=== PATIENT | female | born 1945 | race Caucasian/White ===

== ENCOUNTER 2017-08-02 05:01 | Emergency (ER) | payer MEDICARE ==
[~2017-08-02] VITALS: Ht 167.6 cm; Wt 68.0 kg
[2017-08-02] MEDS ORDERED: MUCINEX (05:34)
--- NOTE | 2017-08-02 05:35 | NUR ---
Pt c/o cough x 4 days after flying from [place], was not sick there, and associated rib pain from coughing. Pt denies CP, SOB, dizziness, n/v, no other complaints, minor distress noted.
[2017-08-02] MEDS ORDERED: MORPHINE SULFATE 2 MG/1 ML DISP.SYRIN IV ONE (06:15)
[2017-08-02] MEDS ORDERED: IV NORMAL SALINE 1000 ML BAG IV ONE (06:15)
[2017-08-02] MEDS ORDERED: ALBUTEROL SULFATE 2.5 MG/3 ML NEBU NEB ONE (06:15)
[2017-08-02] MEDS ORDERED: ONDANSETRON 4 MG/2 ML VIAL IV ONE (06:15)
[2017-08-02] MEDS ORDERED: ONDANSETRON 4 MG/2 ML VIAL ONE (06:42)
[2017-08-02] MEDS ORDERED: MORPHINE SULFATE 4 MG/1 ML DISP.SYRIN ONE ×2 (06:42→06:47)
[2017-08-02 06:49] LABS: BASOPHILS % (AUTO) 0.4 % (0.0-2.0); EOSINOPHILS % (AUTO) 1.1 % (0.0-7.0); HEMATOCRIT 41.1 % (31.2-41.9); HEMOGLOBIN 13.9 g/dL (10.9-14.3); LYMPHOCYTES # (AUTO) 1.1 K/uL (20.0-40.0); LYMPHOCYTES % (AUTO) 35.3 % (20.5-51.5); MEAN CORPUSCULAR HEMOGLOBIN 28.5 uug (24.7-32.8); MEAN CORPUSCULAR HGB CONC 34 g/dL (32.3-35.6); MEAN CORPUSCULAR VOLUME 84.5 fL (75.5-95.3); MONOCYTES # (AUTO) 0.4 K/uL (2.0-10.0); MONOCYTES % (AUTO) 13.6 % (0.0-11.0); NEUTROPHILS # (AUTO) 1.6 K/uL (1.8-8.9); NEUTROPHILS % (AUTO) 49.6 % (38.5-71.5); PLATELET COUNT (AUTO) 141 K/uL (179-408); RED BLOOD CELL COUNT(AUTO) 4.86 MIL/uL (3.63-4.92); WHITE BLOOD COUNT (AUTO) 3.2 K/uL (3.8-11.8)
[2017-08-02] MEDS ORDERED: ALBUTEROL SULFATE 2.5 MG/3 ML NEBU ONE (06:55)
[2017-08-02 06:58] LABS: CARBON DIOXIDE 29 mmol/L (21-32); CHLORIDE 103 mmol/L (98-107); CREATININE 0.7 mg/dL (0.6-1.3); GLUCOSE 85 mg/dL (74-106); POTASSIUM 3.7 mmol/L (3.5-5.1); UREA NITROGEN, BLOOD 14 mg/dL (7-18)
[2017-08-02 07:08] LABS: ALANINE AMINOTRANSFERASE 30 U/L (14-59); ALKALINE PHOSPHATASE 52 U/L (50-136); ASPARTATE AMINOTRANSFERASE 33 U/L (15-37); BILIRUBIN,DIRECT 0.1 mg/dL (0.0-0.2); BILIRUBIN,TOTAL 0.5 mg/dL (0.2-1.0); TOTAL PROTEIN, SERUM 6.6 g/dL (6.4-8.2)
[2017-08-02] MEDS ORDERED: IOHEXOL 350 100 ML INFUS..BTL ONE (07:20)
[2017-08-02] MEDS ORDERED: NORMAL SALINE FLUSH 10 ML DISP.SYRIN ONE (07:20)
[2017-08-02] MEDS ORDERED: GUAIFENESIN/CODEINE 5 ML LIQUID UDC PO ONE (07:30)
--- NOTE | 2017-08-02 07:42 | NUR ---
0709- Patient was seen ambulating to room 4 bathroom from room 2 with steady gait, speaks full sentences comfortably, NAD, congestive coughing heard, no sob seen
[2017-08-02] MEDS ORDERED: GUAIFENESIN/CODEINE 5 ML LIQUID UDC ONE (07:43)
--- NOTE | 2017-08-02 09:26 | NUR ---
Patient is resting comfortably on gurney while waiting for CT scan results. Patient says, "I want to go home today. I have visitors." notified.
[2017-08-02 09:47] LABS: *BILIRUBIN,URIN NEGATIVE (NEGATIVE); *BLOOD, URINE NEGATIVE (NEGATIVE); *CLARITY,URINE CLEAR (CLEAR); *COLOR,URINE YELLOW (YELLOW); *KETONES,URINE NEGATIVE (NEGATIVE); *PROTEIN,URINE NEGATIVE (NEGATIVE); *UROBILINOGEN,URINE 0.2 E.U./dl (NORMAL); LEUKOCYTE ESTERASE ,URINE NEGATIVE (NEGATIVE); NITRITE, URINE NEGATIVE (NEGATIVE); UGLUCOSE NEGATIVE (NEGATIVE)
--- NOTE | 2017-08-02 10:04 | NUR ---
IV removed. Catheter intact and site benign. Pressure and 4x4 gauze applied to site. No bleeding noted. Patient discharged to home in stable conditon. Written and verbal after care instructions given to patient. Patient verbalizes understanding of instructions. Copies of all tests results were given to the patient.
[2017-08-02 10:35] LABS: BACTERIA,URINE NONE SEEN /HPF (NONE SEEN); RBC,URINE NONE SEEN /HPF (0-3); SQUAMOUS EPITHELIAL CELL,UR FEW /HPF (NONE SEEN); WBC,URINE 0-3 /HPF (0-3)
== END 2017-08-02 10:16 | disposition home or self-care (01) ==
LOC: ER 05:04
DX: J40 Bronchitis, not specified as acute or chronic (principal); D70.9 Neutropenia, unspecified
CPT/HCPCS: 36415; 71010; 71275; 80048; 80076; 81001; 83605; 83880; 84484; 85025; 85379; 85730; 87040 ×2; 87086; 87400; 93005; 94640; 96361; 96374; 96375; 99285; A4663; J2270 ×2; J2405; J3490; J7030; Q9967; 70030-TC

== ENCOUNTER 2019-06-23 00:33 | Emergency (ER) | payer MEDICARE, BC ==
[~2019-06-23] VITALS: Ht 165.1 cm; Wt 63.5 kg
[~2019-06-23 00:33] MED LIST: MUCINEX
--- NOTE | 2019-06-23 00:35 | NUR ---
Patient arrived at the ER with chief complaint of left side chest wall pain radiating to left arm that started 4hrs [employer]. Patient took 0.4 nitro sublingual [employer]. Denies any SOB. No /GI concern.
--- NOTE | 2019-06-23 00:49 | NUR ---
Dr. Zaidi on bedside for MSE.
[2019-06-23] MEDS ORDERED: IV NORMAL SALINE 500 ML BAG IV ONE (01:00)
[2019-06-23 01:12] LABS: BASOPHILS % (AUTO) 0.4 % (0.0-2.0); EOSINOPHILS # (AUTO) 0.6 K/uL (0.0-0.7); EOSINOPHILS % (AUTO) 12.2 % (0.0-7.0); HEMATOCRIT 42.3 % (31.2-41.9); HEMOGLOBIN 14.3 g/dL (10.9-14.3); LYMPHOCYTES # (AUTO) 1.7 K/uL (20.0-40.0); LYMPHOCYTES % (AUTO) 33.5 % (20.5-51.5); MEAN CORPUSCULAR HEMOGLOBIN 29.2 uug (24.7-32.8); MEAN CORPUSCULAR HGB CONC 34 g/dL (32.3-35.6); MEAN CORPUSCULAR VOLUME 86.8 fL (75.5-95.3); MONOCYTES # (AUTO) 0.4 K/uL (2.0-10.0); MONOCYTES % (AUTO) 7.9 % (0.0-11.0); NEUTROPHILS # (AUTO) 2.3 K/uL (1.8-8.9); PLATELET COUNT (AUTO) 177 K/uL (179-408); RED BLOOD CELL COUNT(AUTO) 4.88 MIL/uL (3.63-4.92); WHITE BLOOD COUNT (AUTO) 4.9 K/uL (3.8-11.8)
[2019-06-23 01:20] LABS: CREATININE 0.9 mg/dL (0.6-1.3); POTASSIUM 3.4 mmol/L (3.5-5.1)
[2019-06-23 01:32] LABS: BILIRUBIN,DIRECT 0.1 mg/dL (0.0-0.2); BILIRUBIN,TOTAL 0.5 mg/dL (0.2-1.0); TOTAL PROTEIN, SERUM 7.3 g/dL (6.4-8.2)
--- NOTE | 2019-06-23 01:56 | NUR ---
Dr. Zaidi on bedside.
--- NOTE | 2019-06-23 02:10 | NUR ---
Patient discharged to home in stable conditon. Written and verbal after care instructions given. Patient verbalizes understanding of instructions. Pt ambulated out of the ER with steady gait. All belongings with pt.
[2019-06-23 02:12] VITALS: BP 115/59
== END 2019-06-23 02:10 | disposition home or self-care (01) ==
LOC: ER 00:35
DX: R07.89 Other chest pain (principal); Z79.899 Other long term (current) drug therapy
CPT/HCPCS: 36415; 70030-TC; 71045; 85025; 85730; 93005; A4663; J7040

== ENCOUNTER 2022-11-18 14:37 | Emergency (ER) | payer MEDICARE, BC ==
[~2022-11-18] VITALS: Ht 162.6 cm; Wt 64.4 kg
[2022-11-18] MEDS ORDERED: IBUPROFEN 600 MG TABLET PO ONE (15:45)
[2022-11-18] MEDS ORDERED: IBUPROFEN 600 MG TABLET ONE (15:59)
--- NOTE | 2022-11-18 16:02 | NUR ---
PT SEEN AND EVALUATED BY DR GAGE; MEDICATED FOR PAIN PER MD ORDER.
[2022-11-18] MEDS ORDERED: IBUP-1955 PO (16:08)
[2022-11-18 16:44] VITALS: BP 134/72
== END 2022-11-18 16:45 | disposition home or self-care (01) ==
LOC: EDBD 14:37 → ER 14:37
DX: S46.912A Strain of unspecified muscle, fascia and tendon at shoulder and upper arm level, left arm, initial encounter (principal); V49.9XXA Car occupant (driver) (passenger) injured in unspecified traffic accident, initial encounter; Y93.89 Activity, other specified; Y92.89 Other specified places as the place of occurrence of the external cause; Y99.8 Other external cause status
CPT/HCPCS: 73030; A4663

== ENCOUNTER 2024-12-05 19:45 | Emergency (ER) | payer MEDICARE, BC ==
[~2024-12-05] VITALS: Ht 162.6 cm; Wt 61.2 kg
[~2024-12-05 19:45] MED LIST changes: +IBUP-1955 PO
[2024-12-05] MEDS ORDERED: ONDANSETRON 4 MG/2 ML VIAL IV ONE (20:15)
[2024-12-05] MEDS ORDERED: ONDANSETRON ODT 4 MG TAB.RAPDIS ONE (20:44)
[2024-12-05] MEDS ORDERED: MECLIZINE HCL 25 MG TABLET ONE (20:44)
[2024-12-05] MEDS: MECLIZINE HCL 25 MG TABLET PO ONE (20:48)
[2024-12-05] MEDS: ONDANSETRON ODT 4 MG TAB.RAPDIS SL ONE (20:49)
[2024-12-05 20:51] LABS: BASOPHILS % (AUTO) 0.4 % (0.0-2.0); EOSINOPHILS # (AUTO) 0.1 K/uL (0.0-0.7); EOSINOPHILS % (AUTO) 0.8 % (0.0-7.0); HEMATOCRIT 39.2 % (31.2-41.9); HEMOGLOBIN 13.5 g/dL (10.9-14.3); LYMPHOCYTES # (AUTO) 1.4 K/uL (0.8-4.8); LYMPHOCYTES % (AUTO) 22.4 % (20.5-51.5); MEAN CORPUSCULAR HEMOGLOBIN 28.7 uug (24.7-32.8); MEAN CORPUSCULAR HGB CONC 35 g/dL (32.3-35.6); MEAN CORPUSCULAR VOLUME 83.4 fL (75.5-95.3); MONOCYTES # (AUTO) 0.6 K/uL (0.1-1.30); NEUTROPHILS # (AUTO) 4.2 K/uL (1.8-8.9); NEUTROPHILS % (AUTO) 66.4 % (38.5-71.5); PLATELET COUNT (AUTO) 193 K/uL (179-408); WHITE BLOOD COUNT (AUTO) 6.4 K/uL (3.8-11.8)
[2024-12-05 20:57] LABS: DIFFERENTIAL COMMENT 1
[2024-12-05 21:03] LABS: CALCIUM 9.6 mg/dL (8.5-10.1); CARBON DIOXIDE 27 mmol/L (21-32); CHLORIDE 106 mmol/L (98-107); CREATININE 0.7 mg/dL (0.6-1.3); GLUCOSE 110 mg/dL (74-106); POTASSIUM 3.6 mmol/L (3.5-5.1); SODIUM SERUM 144 mmol/L (136-145); UREA NITROGEN, BLOOD 20 mg/dL (7-18)
[2024-12-05 21:08] LABS: ALBUMIN 3.8 g/dL (3.4-5.0); BILIRUBIN,DIRECT 0.2 mg/dL (0.0-0.2); BILIRUBIN,TOTAL 0.6 mg/dL (0.2-1.0)
[2024-12-05 21:19] LABS: THYROID STIMULATING HORMONE 1.114 mIU/mL (0.358-3.740)
[2024-12-05] MEDS ORDERED: MECL-159 PO (22:17)
[2024-12-05] MEDS ORDERED: ONDA4TAB11 PO (22:17)
[2024-12-05 22:44] VITALS: BP 133/71; O2SAT 97
== END 2024-12-05 22:44 | disposition home or self-care (01) ==
LOC: ER 19:52
DX: H81.391 Other peripheral vertigo, right ear (principal); R11.2 Nausea with vomiting, unspecified; R07.9 Chest pain, unspecified; Z88.7 Allergy status to serum and vaccine
CPT/HCPCS: 36415; 70450; 84443; 84484; 85025; 85730; A4606; A4663; J8597; Q0162